=== PATIENT | female | born 1955 | race Caucasian/White ===

== ENCOUNTER 2019-05-03 05:40 | Outpatient (CLI) | payer BC ==
[~2019-05-03] VITALS: Ht 157.5 cm; Wt 46.7 kg
[2019-05-03] MEDS ORDERED: AMLO2.5T4 PO (13:14)
[2019-05-03] MEDS ORDERED: CLON1PAT16 TD (13:14)
== END 2019-05-03 13:20 | disposition home or self-care (01) ==
LOC: PREOP 05:40
PROVIDERS: ATTEND Pediatrics
DX: Z01.818 Encounter for other preprocedural examination (principal)

== ENCOUNTER 2019-05-10 06:35 | Day surgery (SDC) | payer BC ==
[~2019-05-10] VITALS: Ht 157.5 cm; Wt 46.7 kg
[~2019-05-10 06:35] MED LIST: AMLO2.5T4 PO; CLON1PAT16 TD
--- OUTSIDE RECORDS SUMMARY | 2019-05-10 06:38 | XMS REPORT | Continuity of Care Document ---
Author Author [facility] Organization [facility] Address [facility] [address] [place] [id number] Phone Unavailable Support Name Relationship Address Phone CANDIE WOOD Caregiver [address] [place] [phone] Unavailable ASCENCION CUETO MD Caregiver [address] [place] [phone] Unavailable JAIDA LOUIS Next Of Kin [facility] [address] [place] [address] Insurance Providers Payer Name Policy Number Subscriber Name Relationship [employer] Other [id number] Keeley Louis 17 Self / Same As Patient Advance Directives Directive Response Recorded Date/Time Advance Directives No 05/21/17 7:22am Living Will No 05/21/17 7:22am Health Care Proxy No 05/21/17 7:22am Power of Manager Commercial Sales for Health Care No 05/21/17 7:22am Organ, Tissue, or Eye Donor No 05/21/17 7:22am Do you have a signed organ donor card? No 05/21/17 7:22am Chief Complaint and Reason for Visit Chief Complaint FOREIGN BODY_SENSATION IN THRO Reason for Visit [id number] Problems Active Problems Medical Problem Onset Date Status Esophageal obstruction due to food impaction Unknown Acute Medications Current Home Medications Medication Dose Units Route Directions Days/Qty Instructions Start Date Clonidine Hcl 1 Patch.wk 2 Patch Transderm Weekly 4 05/21/17 Social History Social History Problem Response Recorded Date/Time Smoking Status Never smoker 05/21/2017 6:43am Query Response Start Date Stop Date Smoking Status Never smoker Hospital Discharge Instructions No hospital discharge instructions. Plan of Care Discharge Date 05/21/17 8:49am Condition at Discharge Stable Prescriptions See Medication Section Functional Status Query Response Date Recorded Patient Behavior Anxious May 21, 2017 6:35am Allergies, Adverse Reactions, Alerts No known allergies. Immunizations Name Given Type Hx Diphtheria, Pertussis, Tetanus Vaccination Unknown Historical Hx Influenza Vaccination Y Fall 2015 Historical Hx Pneumococcal Vaccination No Historical Vital Signs Acute Vital Signs Vital Response Date/Time Temperature (Fahrenheit) 97.6 degrees F (97.6 - 99.5) 05/21/2017 6:31am Temperature Source Temporal Artery 05/21/2017 6:31am Pulse Rate (adult) 70 bpm (60 - 90) 05/21/2017 8:32am Respiratory Rate 22 bpm (12 - 24) 05/21/2017 8:32am Blood Pressure 158/67 mm Hg 05/21/2017 8:32am O2 Sat by Pulse Oximetry 98 % (90 - 100) 05/21/2017 8:32am Oxygen Delivery Method 05/21/2017 8:32am Pain Location Body Site Modifier 05/21/2017 7:04am Pain Description 05/21/2017 7:04am Height 5 ft 2 in Weight 130 lb Body Mass Index 23.0 kg/m^2 Results Laboratory Results Test Name Result Units Flags Reference Collection Date/Time Result Date/Time Comments White Blood Count 9.5 K/uL 4.8-10.8 05/21/2017 6:57am 05/21/2017 7:55am Red Blood Count 5.10 M/uL 4.20-5.40 05/21/2017 6:57am 05/21/2017 7:55am Hemoglobin 15.0 gm/dL 12.0-16.0 05/21/2017 6:57am 05/21/2017 7:55am Hematocrit 44.4 % 37.0-47.0 05/21/2017 6:57am 05/21/2017 7:55am Mean Corpuscular Volume 87.0 fL 81.0-99.0 05/21/2017 6:57am 05/21/2017 7:55am Mean Corpuscular Hemoglobin 29.4 pg 27.0-31.0 05/21/2017 6:57am 05/21/2017 7:55am Mean Corpuscular Hemoglobin Concent 33.8 g/dL 30.0-37.0 05/21/2017 6:57am 05/21/2017 7:55am Red Cell Distribution Width 13.9 % 11.5-14.5 05/21/2017 6:57am 05/21/2017 7:55am Platelet Count 277 K/uL 130-400 05/21/2017 6:57am 05/21/2017 7:55am Mean Platelet Volume 8.8 fL 7.4-10.4 05/21/2017 6:57am 05/21/2017 7:55am Neutrophils (%) (Auto) 77.9 % H 42.2-75.2 05/21/2017 6:57am 05/21/2017 7:55am Lymphocytes (%) (Auto) 18.4 % L 20.5-51.1 05/21/2017 6:57am 05/21/2017 7:55am Monocytes (%) (Auto) 2.8 % 1.7-9.3 05/21/2017 6:57am 05/21/2017 7:55am Eosinophils (%) (Auto) 0.3 % 0-3 05/21/2017 6:57am 05/21/2017 7:55am Basophils (%) (Auto) 0.5 % 0.0-1.0 05/21/2017 6:57am 05/21/2017 7:55am Neutrophils # (Auto) 7.4 K/uL H 2.0-6.9 05/21/2017 6:57am 05/21/2017 7:55am Lymphocytes # (Auto) 1.7 K/uL 1.2-3.4 05/21/2017 6:57am 05/21/2017 7:55am Monocytes # (Auto) 0.3 K/uL 0.1-0.6 05/21/2017 6:57am 05/21/2017 7:55am Eosinophils # (Auto) 0.0 K/uL 0.0-0.7 05/21/2017 6:57am 05/21/2017 7:55am Basophils # (Auto) 0.1 K/uL 0.0-0.2 05/21/2017 6:5705/21/2017 7:55am Random Glucose 128 mg/dL H 70-110 05/21/2017 6:5705/21/2017 8:00am Blood Urea Nitrogen 13 mg/dL 7-18 05/21/2017 6:5705/21/2017 8:00am Creatinine 1.2 mg/dL H 0.55-1.02 05/21/2017 6:57am 05/21/2017 8:01am Sodium Level 140 mEq/L 136-145 05/21/2017 6:5705/21/2017 8:00am Potassium Level 3.5 mEq/L 3.5-5.0 05/21/2017 6:57am 05/21/2017 8:00am Chloride Level 102 mEq/L 98-107 05/21/2017 6:57am 05/21/2017 8:00am Carbon Dioxide Level 21.0 mEq/L 21-32 05/21/2017 6:57am 05/21/2017 8:00am Calcium Level 9.6 mg/dL 8.8-10.5 05/21/2017 6:57am 05/21/2017 8:00am Glomerular Filtration Rate Calc 48.4 mL/min 05/21/2017 6:57am 05/21/2017 8:01am Procedures No known history of procedures. Encounters Encounter Location Arrival/Admit Date Discharge/Depart Date Attending Provider Departed Emergency Room [facility] 05/21/17 6:35am 05/21/17 8:49am ASCENCION CUETO MD Recent Diagnosis
[2019-05-10] MEDS ORDERED: NS IV 500 ML 500 ML IV PRN (06:55)
[2019-05-10] MEDS ORDERED: fentaNYL INJECTION 100 MCG/2 ML AMP IVP ONE (07:00)
[2019-05-10] MEDS ORDERED: MIDAZOLAM 2 MG/2 ML (VERSED) VIAL IVP ONE (07:00)
[2019-05-10] MEDS ORDERED: NS IV 500 ML 500 ML ONE (07:04)
[2019-05-10] MEDS ORDERED: MIDAZOLAM 2 MG/2 ML (VERSED) VIAL ONE ×3 (07:16)
[2019-05-10] MEDS ORDERED: fentaNYL INJECTION 100 MCG/2 ML AMP ONE (07:17)
[2019-05-10 07:28] VITALS: BP 184/81
--- NOTE | 2019-05-10 07:53 | Progress Note-Pre Operative ---
Pre-Operative Progress Note H&P Reviewed The H&P was reviewed, patient examined and no changes noted. Date Seen by Provider: May 10, 2019 Time Seen by Provider: 07:52 Date H&P Reviewed: May 10, 2019 Time H&P Reviewed: 07:53 Pre-Operative Diagnosis: KATYA Andrews MD May 10, 2019 07:53
--- NOTE | 2019-05-10 08:20 | Endoscopy Procedure Report ---
Colonoscopy Procedure Performed: Colonoscopy Pre-Operative Diagnosis: screen Post-Operative Diagnosis: sigmopid polyp Stave Machine Tender: None. Indications for Procedure: screen Procedure Details: Informed consent was obtained, the risks, benefits and alternatives to the procedure were explained to the patient. The Keeley Palumbo, a 63 yr old fem saida, was brought to to surgery area, sedated with 6 mg of Versed and 50 mg of fentanyl. She was placed in the left lateral decubitus position. Under direct visualization the scope was passed easily to the cecum. Cecum is identified by landmarks. Scope was carefully withdrawn. Findings: Ascending Colon: none Transverse Colon: none Descending/Sigmoid: sigmoid polyp Rectum: internal hemmorhoids Estimated Blood Loss: 0mL Specimens: sigmoid polyp Complications: None; patient tolerated the procedure well. Final Diagnosis: sigmoid polyp KATYA SAN MD May 10, 2019 08:20
[2019-05-10 08:25] VITALS: BP 145/67
[2019-05-10 08:51] VITALS: BP 145/67
--- NOTE | 2019-05-16 16:00 | Physician Query-Final Dx ---
YANDY QUAN 05/16/19 1600: Clinic Account Progress/Dx Physician Query: Dr Jain Please specify how the polyp was removed ( hot biopsy, snare, ablation or ect...) thank you Date of Service May 10, 2019 at 06:35 GERBER PETERSON 05/28/19 1053: YANDY QUAN May 16, 2019 16:00 GERBER PETERSON May 28, 2019 10:53
== END 2019-05-10 08:55 | disposition home or self-care (01) ==
LOC: ENDO 06:35
PROVIDERS: ATTEND Pediatrics
DX: Z12.11 Encounter for screening for malignant neoplasm of colon (principal); D12.7 Benign neoplasm of rectosigmoid junction; K64.8 Other hemorrhoids; I10 Essential (primary) hypertension; I73.9 Peripheral vascular disease, unspecified; F51.01 Primary insomnia; Z79.899 Other long term (current) drug therapy
CPT/HCPCS: 88305

== ENCOUNTER 2020-03-16 11:17 | Emergency (ER) | payer MEDICARE, OTHER ==
[~2020-03-16] VITALS: Ht 157 cm; Wt 64.3 kg
--- OUTSIDE RECORDS SUMMARY | 2020-03-16 11:23 | XMS REPORT | Continuity of Care Document ---
Author Organization Unknown Address Unknown Phone Unavailable Allergies Active Description Code Type Severity Reaction Onset Reported/Identified Relationship to Patient Clinical Status Yes No Known Drug Allergies [id number] Drug Allergy Unknown N/A 05/03/2019 Medications There is no data. 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 05/29/2019 KATYA SAN MD, Ot F51.01 PRIMARY INSOMNIA 05/29/2019 KATYA SAN MD, Ot I10 ESSENTIAL (PRIMARY) HYPERTENSION 05/29/2019 KATYA SAN MD, Ot I73.9 PERIPHERAL VASCULAR DISEASE, UNSPECIFIED 05/29/2019 KATYA SAN MD, Ot K64.8 OTHER HEMORRHOIDS 05/29/2019 KATYA SAN MD, Ot Z12.11 ENCOUNTER FOR SCREENING FOR MALIGNANT NE 05/29/2019 KATYA SAN MD, Ot Z79.899 OTHER TRAFFIC AGENT (CURRENT) DRUG THERAPY 05/31/2019 KATYA SAN MD, Ot 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 Results There is no data. Encounters ACCT No. Visit Date/Time Discharge Status Pt. Type Provider Facility Loc./Unit Complaint [id number] 05/10/2019 06:35:00 019 08:55:00 DIS Outpatient MENA OLSEN, KATYA blue [facility] ENDO SCREENING [id number] 05/03/2019 05:40:00 019 13:20:00 DIS Outpatient MENA OLSEN, KATYA blue [facility] PREOP COLONOSCOPY
[2020-03-16] MEDS ORDERED: LEVO500T80 (11:28)
[2020-03-16] MEDS ORDERED: NS IV 1000 ML 1,000 ML IV SCH (11:29)
[2020-03-16] MEDS ORDERED: ASPIRIN 81 MG CHEW (CHILDREN'S ASA) PO ONE (11:30)
--- NOTE | 2020-03-16 11:36 | ED Cardiac General ---
History of Present Illness General Chief Complaint: Cardiac/General Problems Stated Complaint: FEELS LIKE HER HEART IS RACING Nursing Triage Note: Patient reports sitting on couch prior to arrival and feeling like her heart started racing. Source: patient Exam Limitations: no limitations History of Present Illness Date Seen by Provider: Mar 16, 2020 Time Seen by Provider: 11:20 Initial Comments Patient presents ER by private conveyance from home with chief complaint that she was sitting on the couch not doing anything strenuous about half an hour jordana or to arrival when she started feeling palpitations and rapid heart rate. She has no history of atrial fibrillation. She says is happened once years before. She is not having any chest pain or new pains. No fevers chills cough for nausea. She did recently start Levaquin for a bout of diverticulitis by Dr. San her primary care office. She is on amlodipine for blood pressure. She denies a history of hyperlipidemia, coronary disease, or diabetes. She quit smoking over 15 years ago. She has had bilateral femoral popliteal bypass grafts for peripheral arterial disease. No early onset familial coronary disease. Allergies and Home Medications Allergies Coded Allergies: No Known Drug Allergies (Unverified , 05/03/19) Home Medications Amlodipine Besylate 2.5 Mg Tablet, 2.5 MG PO DAILY, (Reported) Clonidine 1 Each Patch.tdwk, 2 PATCH TD Q7D, (Reported) Metoprolol Succinate 50 Mg Tab.er.24h, 50 MG PO DAILY Prescribed by: JEANNE MEDRANO on 03/16/20 1450 Patient Home Medication List Home Medication List Reviewed: Yes Review of Systems Review of Systems Constitutional: No chills, No diaphoresis EENTM: No Blurred Vision, No Double Vision Respiratory: Denies Cough, Denies Shortness of Air Cardiovascular: Denies Chest Pain, Denies Lightheadedness Gastrointestinal: Denies Constipated, Denies Vomiting Genitourinary: Denies Discharge, Denies Drainage Musculoskeletal: No back pain, No joint pain Skin: No pruritus, No rash Psychiatric/Neurological: Denies Headache, Denies Numbness, Denies Paresthesia All Other Systems Reviewed Negative Unless Noted: Yes Past Hmszqyf-Soqwpu-Udaibw Hx Patient Social History Alcohol Use: Occasionally Uses Recreational Drug Use: No Smoking Status: Former Smoker Former Smoker, Quit: May 03, 2003 2nd Hand Smoke Exposure: Yes Recent Foreign Travel: No Contact w/Someone Who Travel: No Recent Infectious Disease Expo: No Recent Hopitalizations: No Immunizations Up To Date Date of Influenza Vaccine: Sep 04, 2018 Seasonal Allergies Seasonal Allergies: No Past Medical History Surgeries: Yes (VASCULAR LEGS, femeral bypass) Gallbladder, Vascular Surgery Respiratory: No Cardiac: Yes Hypertension, Peripheral Vascular Neurological: No Sexually Transmitted Disease: No HIV/AIDS: No Genitourinary: No Gastrointestinal: No Musculoskeletal: No Endocrine: No HEENT: Yes (GLASSES, DENTURES) Loss of Vision: Bilateral Hearing Impairment: Denies Cancer: No Psychosocial: No Integumentary: No Blood Disorders: No Adverse Reaction/Blood Tranf: No (N/A) Physical Exam Vital Signs Vital Signs - First Documented 03/16/20 11:21 Temp 36.4 Pulse 147 Resp 24 B/P (MAP) 223/80 (127) Pulse Ox 96 Capillary Refill : Less Than 3 Seconds Height, Weight, BMI Height: 5'2.00" Weight: 103lbs. 0.0oz. [id number]; 26.00 BMI Method: General Appearance: WD/WN, Anxious, Mild Distress HEENT: PERRL/EOMI, Pharynx Normal, Moist Mucous Membranes Neck: Full Range of Motion, Normal Inspection Respiratory: Chest Non Tender, Lungs Clear, Normal Breath Sounds, No Accessory Muscle Use, No Respiratory Distress Cardiovascular: Regular Rate, Rhythm, No Edema, No JVD, Normal Peripheral Pulses, Tachycardia Gastrointestinal: Normal Bowel Sounds, Non Tender, Soft Extremity: Normal Capillary Refill, Normal Inspection, Normal Range of Motion, Non Tender, No Pedal Edema Neurologic/Psychiatric: Alert, Oriented x3, No Motor/Sensory Deficits Skin: Normal Color, Warm/Dry Procedures/Interventions Additional Procedures: cardioversion/defib Progress Attempt at chemical cardioversion using Adenocard with 6 mg at 1151 slow the heart rate down significantly and then shortly resumed a inappropriate sinus tachycardia. Second attempt using 12 mg Adenocard slow the heart rate down significantly for about 10 seconds and then resumed into a sinus tachycardia 110 bpm. Progress/Results/Core Measures Results/Orders Lab Results Laboratory Tests Test 03/16/20 11:30 Range/Units White Blood Count 8.9 4.3-11.0 10^3/uL Red Blood Count 5.25 4.35-5.85 10^6/uL Hemoglobin 15.3 11.5-16.0 G/DL Hematocrit 45 35-52 % Mean Corpuscular Volume 86 80-99 FL Mean Corpuscular Hemoglobin 29 25-34 PG Mean Corpuscular Hemoglobin Concent 34 32-36 G/DL Red Cell Distribution Width 13.0 10.0-14.5 % Platelet Count 317 130-400 10^3/uL Mean Platelet Volume 9.5 7.4-10.4 FL Neutrophils (%) (Auto) 55 42-75 % Lymphocytes (%) (Auto) 37 12-44 % Monocytes (%) (Auto) 5 0-12 % Eosinophils (%) (Auto) 2 0-10 % Basophils (%) (Auto) 1 0-10 % Neutrophils # (Auto) 4.9 1.8-7.8 X 10^3 Lymphocytes # (Auto) 3.3 1.0-4.0 X 10^3 Monocytes # (Auto) 0.4 0.0-1.0 X 10^3 Eosinophils # (Auto) 0.2 0.0-0.3 10^3/uL Basophils # (Auto) 0.1 0.0-0.1 10^3/uL D-Dimer 3.22 H 0.00-0.49 UG/ML Sodium Level 141 135-145 MMOL/L Potassium Level 4.0 3.6-5.0 MMOL/L Chloride Level 102 98-107 MMOL/L Carbon Dioxide Level 21 21-32 MMOL/L Anion Gap 18 H 5-14 MMOL/L Blood Urea Nitrogen 10 7-18 MG/DL Creatinine 1.27 0.60-1.30 MG/DL Estimat Glomerular Filtration Rate 42 BUN/Creatinine Ratio 8 Glucose Level 152 H 70-105 MG/DL Calcium Level 9.8 8.5-10.1 MG/DL Corrected Calcium 9.6 8.5-10.1 MG/DL Total Bilirubin 0.2 0.1-1.0 MG/DL Aspartate Amino Transf (AST/SGOT) 24 5-34 U/L Alanine Aminotransferase (ALT/SGPT) 19 0-55 U/L Alkaline Phosphatase 131 40-136 U/L Troponin I < 0.30 <0.30 NG/ML C-Reactive Protein 2.01 H <0.50 MG/DL Pro-B-Type Natriuretic Peptide 96.8 H <75.0 PG/ML Total Protein 8.0 6.4-8.2 GM/DL Albumin 4.3 3.2-4.5 GM/DL My Orders Orders - JEANNE MEDRANO Continuous Ekg Monitoring (03/16/20 11:25) Ekg Tracing (03/16/20 11:25) Chest 1 View Ap/Pa Only (03/16/20 11:29) Ed Iv/Invasive Line Start (03/16/20 11:29) Monitor-Rhythm Ecg Trace Only (03/16/20 11:29) Aspirin Chewable Tablet (Baby Aspirin Ch (03/16/20 11:30) Cbc With Automated Diff (03/16/20 11:29) Comprehensive Metabolic Panel (03/16/20 11:29) Troponin I Fs (03/16/20 11:29) Probnp Fs (03/16/20 11:29) Ed Iv/Invasive Line Start (03/16/20 11:29) Ns Iv 1000 Ml (Sodium Chloride 0.9%) (03/16/20 11:29) Adenosine Injection (Adenocard Injection (03/16/20 11:42) Adenosine Injection (Adenocard Injection (03/16/20 12:00) Ekg Tracing (03/16/20 12:08) Crp Fs (03/16/20 12:09) Fibrin Degradation Products (03/16/20 12:54) Ct Angio Chest W (03/16/20 13:12) Iohexol Injection (Omnipaque 350 Mg/Ml 1 (03/16/20 13:15) Received Contrast (Hold Metformin- Contr (03/16/20 13:15) Sodium Chloride Flush (Catheter Flush Sy (03/16/20 13:15) Ns (Ivpb) (Sodium Chloride 0.9% Ivpb Bag (03/16/20 13:15) Metoprolol Succinate (Xl) Tab (Toprol Xl (03/16/20 14:15) Medications Given in ED Current Medications Medications Dose Ordered Sig/Danie Route Start Time Stop Time Status Last Admin Dose Admin Adenosine 6 mg STK-MED ONCE IV 03/16/20 11:42 03/16/20 11:49 DC 03/16/20 11:51 6 MG Adenosine 12 mg ONCE ONCE IV 03/16/20 12:00 03/16/20 12:01 DC 03/16/20 11:54 12 MG Aspirin 324 mg ONCE ONCE PO 03/16/20 11:30 03/16/20 11:32 DC 03/16/20 11:34 324 MG Iohexol 80 ml ONCE ONCE IV 03/16/20 13:15 03/16/20 13:17 DC 03/16/20 13:37 80 ML Sodium Chloride 10 ml NEEDED PRN IV 03/16/20 13:15 03/16/20 13:38 10 ML Sodium Chloride 100 ml ONCE ONCE IV 03/16/20 13:15 03/16/20 13:17 DC 03/16/20 13:38 100 ML Vital Signs/I&O 03/16/20 11:21 Temp 36.4 Pulse 147 Resp 24 B/P (MAP) 223/80 (127) Pulse Ox 96 Blood Pressure Mean: 127 Progress Progress Note #1: Time: 11:40 Progress Note She is hemodynamically stable at this time with a elevated blood pressure of 190/90. At rest her heart rate coming down from the 130s to around 120. It is regular with normal morphology P waves upright in leads II and I. She doesn't have any other history to support why she wouldn't have tachycardia. She does have diverticulitis but it's unusual that it would come on so suddenly. We'll attempt vagal maneuvers and Adenocard if necessary. No previous medical history at this facility to reference. Unlikely diverticulitis is causing a physiologic sinus tachycardia as she is having a sudden onset of symptoms with palpitations. No fever no significant abdominal pain, non-tender nonsurgical abdomen, normal white count without left shift. 1145: Patient was unable to successfully abort the tachycardia by vagal maneuvers after multiple attempts. She is still hemodynamically stable with an oxygen saturation of 100% on room air and a good blood pressure. Progress Note #2: Time: 11:51 Progress Note Gave 6 mg of Adenocard which did terminate the rhythm when and then momentarily the rhythm resumed in a sinus tachycardia. Second dose of 12 mg was given which had similar effects but she resumed a sinus tachycardia around 100-110. Blood pressure 197/66. Progress Note #3: Time: 14:47 Progress Note Patient's pulses in the 80s and 90s and she says she feels better than when she first presented. No ill effects from the metoprolol so far. We have had her take off her clonidine patches and hold those until she sees her primary care doctor. Blood pressure 159/78. Initial ECG Impression Date: Mar 16, 2020 Initial ECG Impression Time: 11:20 Initial ECG Rate: 126 Initial ECG Rhythm: S.Tach Initial ECG Intervals: Normal Initial ECG Impression: Nonspecific Changes Comment The time is about 8 minutes earlier than the EKG was initially obtained. Regular then, narrow QRS complex tachycardia with one-on-one P-wave relationship. Normal morphologic appearance of the P waves. Appears to be either inappropriate sinus tachycardia or sinoatrial node reentrant tachycardia. EKG : EKG Time: 11:44 Rate: 121 Rhythm: S.Tach Intervals: Normal ECG Comparisson: Unchanged ECG Impression: Nonspecific Changes Comment Times Is off. Adenocard was given at 1151 and 1153 12 mg. Expected effect from Adenocard followed by resuming narrow complex sinus tachycardia. No clinically relevant ST changes. Diagnostic Imaging Diagonstic Imaging: Xray Plain Films/CT/US/NM/MRI: chest Comments Unremarkable one view chest x-ray. NAME: GILMAR LOUIS [facility] REC#: [id number] PT STATUS: REG ER : 1955 PHYSICIAN: JEANNE MEDRANO MD ADMIT DATE: 03/16/20/ER FS Draft Date of Exam:03/16/20 CHEST 1 VIEW AP/PA ONLY INDICATION: Tachycardia. Time of exam 11:38 AM No prior studies are available for comparison. The heart size is normal. The pulmonary vascularity is unremarkable. The lungs are clear. No infiltrate, effusion or pneumothorax is detected. Impression: No acute cardiopulmonary process is detected. Dictated on workstation # [id number] Dict: 03/16/20 1143 Trans: 03/16/20 1150 [facility] [id number] Interpreted by: IVIS RHODES MD Electronically signed by: Reviewed: Reviewed by Me Consults : Consulting Physician: Santos VARGAS MD Consults Notes Discussed the case and he recommends beta blockers. We have forwarded a copy of the EKG for him to review. He brought up the possibility for pulmonary embolism. A d-dimer failed to rule out so we got a CT angiogram which failed to find a pulmonary embolism. We discussed the results and he agrees with Toprol-XL and follow up outpatient. Departure Impression Primary Impression: Inappropriate sinus node tachycardia Additional Impression: Right adrenal mass Disposition: 01 HOME, SELF-CARE Condition: Stable Departure-Patient Inst. Decision time for Depature: 14:47 Referrals: KATYA SAN MD (PCP/Family) Primary Care Physician Santos VARGAS MD Patient Instructions: Sinus Tachycardia (DC) Add. Discharge Instructions: Drink plenty of fluids. Stop using the clonidine until you have reviewed this with either the geothermal operating engineer or your primary care doctor. Start taking metoprolol 50 mg once a day. Return to the ER. Having chest pain or shortness of breath. Plan to follow up with primary care to discuss the right adrenal nodule. Discuss her blood pressure medications. Plan to follow up with Dr. Vargas, cardiology by calling tomorrow for an appointment for your inappropriate sinus node tachycardia. All discharge instructions reviewed with patient and/or family. Voiced understanding. Scripts Metoprolol Succinate (Metoprolol Succinate) 50 Mg Tab.er.24h 50 MG PO DAILY for 30 Days, #30 TAB 0 Refills Prov: JEANNE MEDRANO 03/16/20 JEANNE MEDRANO Mar 16, 2020 11:36
[2020-03-16] MEDS ORDERED: ADENOSINE 6 MG/2 ML (ADENOCARD) VIAL IV ONE ×2 (11:42→12:00)
[2020-03-16 11:43] LABS: BASOPHILS # (AUTO) 0.1 10^3/uL (0.0-0.1); BASOPHILS % (AUTO) 1 % (0-10); EOSINOPHILS # (AUTO) 0.2 10^3/uL (0.0-0.3); EOSINOPHILS % (AUTO) 2 % (0-10); HEMATOCRIT 45 % (35-52); HEMOGLOBIN 15.3 G/DL (11.5-16.0); LYMPHOCYTES # (AUTO) 3.3 X 10^3 (1.0-4.0); LYMPHOCYTES % (AUTO) 37 % (12-44); MEAN CORPUSCULAR HEMOGLOBIN 29 PG (25-34); MEAN CORPUSCULAR HGB CONC 34 G/DL (32-36); MEAN CORPUSCULAR VOLUME 86 FL (80-99); MEAN PLATELET VOLUME 9.5 FL (7.4-10.4); MONOCYTES # (AUTO) 0.4 X 10^3 (0.0-1.0); MONOCYTES % (AUTO) 5 % (0-12); NEUTROPHILS # (AUTO) 4.9 X 10^3 (1.8-7.8); NEUTROPHILS % (AUTO) 55 % (42-75); PLATELET COUNT 317 10^3/uL (130-400); WHITE BLOOD COUNT 8.9 10^3/uL (4.3-11.0)
--- NOTE | 2020-03-16 11:50 | Diagnostic Imaging Report ---
INDICATION: Tachycardia. Time of exam 11:38 AM No prior studies are available for comparison. The heart size is normal. The pulmonary vascularity is unremarkable. The lungs are clear. No infiltrate, effusion or pneumothorax is detected. Impression: No acute cardiopulmonary process is detected. Dictated by: Dictated on workstation # [id number]
[2020-03-16 12:12] LABS: BUN/CREATININE RATIO 8; CALCIUM 9.8 MG/DL (8.5-10.1); CARBON DIOXIDE 21 MMOL/L (21-32); CHLORIDE 102 MMOL/L (98-107); CREATININE SERUM 1.27 MG/DL (0.60-1.30); GFR ESTIMATED 42; GLUCOSE 152 MG/DL (70-105); SODIUM 141 MMOL/L (135-145)
[2020-03-16 12:13] LABS: ALANINE AMINOTRANSFERASE 19 U/L (0-55); ALBUMIN 4.3 GM/DL (3.2-4.5); ALKALINE PHOSPHATASE 131 U/L (40-136); BILIRUBIN,TOTAL 0.2 MG/DL (0.1-1.0)
[2020-03-16] MEDS ORDERED: HOLD METFORMIN - RECEIVED CONTRAST 20 ML VIAL IV SCH (13:15)
[2020-03-16] MEDS ORDERED: CATHETER FLUSH 10 ML SYR IV PRN (13:15)
[2020-03-16] MEDS ORDERED: IOHEXOL 350 MG/ML 100 ML (OMNIPAQUE 350) VIAL IV ONE (13:15)
[2020-03-16] MEDS ORDERED: NS 100 ML (IVPB) BAG IV ONE (13:15)
--- NOTE | 2020-03-16 14:03 | Diagnostic Imaging Report ---
PROCEDURE: CT angiography of the chest with contrast. TECHNIQUE: Multiple contiguous axial images were obtained through the chest after uneventful bolus administration of intravenous contrast. 3D reconstructed CTA MIP acquisitions were also performed. Auto Exposure Controls were utilized during the CT exam to meet ALARA standards for radiation dose reduction. INDICATION: Tachycardia and elevated d-dimer. No prior studies are available for comparison. Multiple low-density nodules in the left lobe of the thyroid are identified. Evaluation of pulmonary arterial system is suboptimal, in part owing to motion artifact from patient respiratory motion. Central pulmonary arteries are widely patent. There is questionable filling defects involving segmental and subsegmental branches to the right lower lobe. Its uncertain if this is true filling defect versus artifactual. Thoracic aorta is of normal caliber. There is no aneurysm or dissection. There is no pericardial or pleural fluid identified. The pulmonary parenchymal evaluation demonstrates the lungs to be clear. No infiltrates are seen. There is no nodule or mass. Upper abdomen does show low-density nodule in the right adrenal gland measuring 1.5 cm. No other abnormalities are seen. IMPRESSION: Compromised study. There is a questionable filling defects versus artifact involving right lower lobe segmental and subsegmental pulmonary arterial branches. Pulmonary embolism cannot be entirely excluded. No other significant abnormality in the chest is identified. Right adrenal low-density nodule, perhaps adenoma. Dictated by: Dictated on workstation # [id number]
[2020-03-16] MEDS ORDERED: meTOproloL SUCCINATE 50 MG (TOPROL XL) TAB PO SCH (14:15)
[2020-03-16] MEDS ORDERED: METO50TA7 PO (14:50)
[2020-03-16 15:03] VITALS: BP 159/78
== END 2020-03-16 15:03 | disposition home or self-care (01) ==
LOC: EDUNIT# 11:17 → ER FS 11:18
DX: I47.1 Supraventricular tachycardia (principal); E27.8 Other specified disorders of adrenal gland; I10 Essential (primary) hypertension; Z87.891 Personal history of nicotine dependence
CPT/HCPCS: 36415; 71045; 71275; 80053; 83880; 84484; 85025; 85379; 86141; 93005; 93041

== ENCOUNTER 2021-01-13 18:45 | Day surgery (SDC) | payer MEDICARE, OTHER ==
[~2021-01-13 18:45] MED LIST changes: +LEVO500T80; +METO50TA7 PO
[2021-01-13] MEDS ORDERED: GLUCAGON EMERGENCY 1 MG/KIT ONE (18:54)
--- NOTE | 2021-01-13 18:59 | ED General ---
General Chief Complaint: General Problems/Pain Stated Complaint: FOOD STUCK IN THROAT Source of Information: Patient (TIMUR CONTRERAS DO) History of Present Illness Date Seen by Provider: Jan 13, 2021 Time Seen by Provider: 18:55 Initial Comments 65-year-old female presents with food caught in her throat. States she was eating dinner tonight, ate beef pot pie and felt something stick in her lower esophagus. Since then she has tried drinking water and unsuccessfully as it comes right back up. She tried several times. History of similar symptoms about 3 years ago and she had to have a surgeon "poke through". Other than that no symptoms since then. Denies any recent illness, fever chills, shortness of air or swelling of her tongue or mouth. (TIMUR CONTRERAS DO) Allergies and Home Medications Allergies Coded Allergies: No Known Drug Allergies (Unverified , 05/03/19) Home Medications Amlodipine Besylate 2.5 Mg Tablet, 2.5 MG PO DAILY, (Reported) Clonidine 1 Each Patch.tdwk, 2 PATCH TD Q7D, (Reported) Metoprolol Succinate 50 Mg Tab.er.24h, 50 MG PO DAILY Prescribed by: JEANNE MARROQUIN on 03/16/20 1450 Pantoprazole Sodium 40 Mg Tablet.dr, 40 MG PO DAILY Prescribed by: JOYCE TATE on 01/13/21 2141 Patient Home Medication List Home Medication List Reviewed: Yes (TIMUR CONTRERAS DO) Review of Systems Review of Systems Constitutional: No dizziness, No fever, No malaise, No weakness EENTM: no symptoms reported; No mouth pain, No mouth swelling, No throat pain, No throat swelling Respiratory: No cough, No short of breath Cardiovascular: No chest pain, No edema, No palpitations, No syncope Gastrointestinal: No abdominal pain, No loss of appetite, No nausea, No vomiting; other (food stuck in throat) (TIMUR CONTRERAS DO) Past Dlwgoev-Tcwrfa-Nkqaqo Hx Past Med/Social Hx: Reviewed Nursing Past Med/Soc Hx (TIMUR CONTRERAS DO) Patient Social History Alcohol Use: Denies Use Former Smoker, Quit: May 03, 2003 2nd Hand Smoke Exposure: Yes Recent Hopitalizations: No (TIMUR CONTRERAS DO) Immunizations Up To Date Date of Influenza Vaccine: Sep 04, 2018 (ROVENSTINE,TIMUR L DO) Seasonal Allergies Seasonal Allergies: No (ROVENSTINE,TIMUR L DO) Past Medical History Surgeries: Yes (VASCULAR LEGS, femeral bypass) Gallbladder, Vascular Surgery Respiratory: No Cardiac: Yes Hypertension, Peripheral Vascular Neurological: No Sexually Transmitted Disease: No HIV/AIDS: No Genitourinary: No Gastrointestinal: No Musculoskeletal: No Endocrine: No HEENT: Yes (GLASSES, DENTURES) Loss of Vision: Bilateral Hearing Impairment: Denies Cancer: No Psychosocial: No Integumentary: No Blood Disorders: No Adverse Reaction/Blood Tranf: No (N/A) (ROVENSTINE,TIMUR L DO) Physical Exam Vital Signs Vital Signs - First Documented 01/13/21 18:47 Temp 36.6 Pulse 82 Resp 18 B/P (MAP) 213/69 (117) Pulse Ox 99 O2 Delivery Room Air (JEANNE MARROQUIN) Vital Signs Capillary Refill : (ROVENSTINE,TIMUR L DO) Height, Weight, BMI Height: 5'2.00" Weight: 103lbs. 0.0oz. [id number]; 26.00 BMI Method: General Appearance: No Apparent Distress, WD/WN Eyes: Bilateral Eye Normal Inspection, Bilateral Eye PERRL, Bilateral Eye Abnormal EOM HEENT: PERRL/EOMI, Normal ENT Inspection Neck: Full Range of Motion, Normal Inspection Respiratory: Chest Non Tender, Lungs Clear, Normal Breath Sounds Cardiovascular: Regular Rate, Rhythm, No Gallop, No JVD Gastrointestinal: Normal Bowel Sounds, No Pulsatile Mass, Non Tender, Soft (ROVENSTINE,TIMUR L DO) Progress/Results/Core Measures Suspected Sepsis SIRS Temperature: Pulse: Respiratory Rate: Blood Pressure / Mean: (ROVENSTINE,TIMUR L DO) Results/Orders My Orders Orders - JEANNE MARROQUIN Fentanyl Injection (Sublimaze Injection (01/13/21 20:54) Midazolam Injection (Versed Injection) (01/13/21 20:55) Propofol Injection (Diprivan Injection) (01/13/21 20:55) Lidocaine 2% Pf 5 Ml (Xylocaine 2% Pf) (01/13/21 20:55) (JEANNE MARROQUIN) Medications Given in ED Current Medications Medications Dose Ordered Sig/Danie Route Start Time Stop Time Status Last Admin Dose Admin Glucagon 1 mg ONCE ONCE IV 01/13/21 19:00 01/13/21 19:01 DC 01/13/21 19:01 1 MG Lactated Ringer's 1,000 ml @ 0 mls/hr Q0M PRN IV 01/13/21 21:00 01/13/21 23:50 DC 01/13/21 21:10 50 MLS/HR (JEANNE MARROQUIN) Vital Signs/I&O 01/13/21 01/13/21 01/13/21 01/13/21 18:47 19:45 20:47 21:52 Temp 36.6 36.0 Pulse 82 70 92 Resp 18 18 B/P (MAP) 213/69 (117) 198/80 212/93 (132) Pulse Ox 99 98 O2 Delivery Room Air Room Air Room Air OxyMask O2 Flow Rate 6 01/13/21 01/13/21 01/13/21 01/13/21 21:52 22:00 22:02 22:08 Temp 36.1 Resp 16 18 B/P (MAP) 142/64 (90) 152/68 (96) Pulse Ox 99 100 O2 Delivery OxyMask OxyMask OxyMask OxyMask O2 Flow Rate 6 6 3 2 01/13/21 01/13/21 01/13/21 01/13/21 22:10 22:10 22:16 22:20 Resp 18 18 B/P (MAP) 146/76 (99) 159/69 (99) Pulse Ox 100 97 O2 Delivery Room Air Room Air Room Air Room Air 01/13/21 01/13/21 01/13/21 01/13/21 22:22 22:30 22:35 22:35 Temp 36.2 Resp 18 18 B/P (MAP) 154/65 (94) 152/68 (96) Pulse Ox 97 97 O2 Delivery Room Air Room Air Room Air Room Air (JEANNE MARROQUIN) Vital Signs/I&O Capillary Refill : (TIMUR CONTRERAS DO) Progress Note : Progress Note Trial of IV glucagon without success (TIMUR CONTRERAS DO) Progress Note #1: Time: 20:55 Progress Note Patient arrives 2044 with chief complaint of having a food embolus stuck since dinner this evening. She is not having any pain but she is unable to swallow any secretions. Dr. Tate's medical students have seen and examined her and he is on his way to discuss with her doing a embolectomy by EGD. Patient not having any nausea. She did have some significantly elevated blood pressure. She says she does take blood pressure medicines and has already had them today. We are going to monitor her blood pressure as it is already starting to go down with time. Progress Note #2: Time: 21:10 Progress Note To EGD with Dr. Tate. (JEANNE MARROQUIN) Departure Communication (Admissions) Time/Spoke to Admitting Phy: 19:[address] Tate who will see pt for endoscopy. Sending though ER and Dr Marroquin notified @ 1940 (TIMUR CONTRERAS DO) Impression Primary Impression: Esophageal obstruction due to food impaction Disposition: 30 STILL A PATIENT Condition: Stable Admissions Decision to Admit Reason: Admit from ER (General) Decision to Admit/Date: Jan 13, 2021 Time/Decision to Admit Time: 19:30 (TIMUR CONTRERAS DO) Departure-Patient Inst. Referrals: KATYA SAN MD (PCP/Family) Primary Care Physician Scripts Pantoprazole Sodium (Protonix) 40 Mg Tablet. 40 MG PO DAILY, #30 TAB 2 Refills Prov: JOYCE TATE DO 01/13/21 TIMUR CONTRERAS DO Jan 13, 2021 18:59 JEANNE MARROQUIN Jan 13, 2021 20:56
[2021-01-13] MEDS ORDERED: GLUCAGON EMERGENCY 1 MG/KIT IV ONE (19:00)
[2021-01-13] MEDS ORDERED: fentaNYL INJECTION 100 MCG/2 ML AMP ONE (20:54)
[2021-01-13] MEDS ORDERED: LIDOCAINE PF 2% 5 ML (XYLOCAINE) VIAL ONE (20:55)
[2021-01-13] MEDS ORDERED: proPOfol 200 MG/20 ML (DIPRIVAN) VIAL IV ONE (20:55)
[2021-01-13] MEDS ORDERED: MIDAZOLAM 2 MG/2 ML (VERSED) VIAL ONE (20:55)
[2021-01-13] MEDS ORDERED: ONDANSETRON 4 MG/2 ML (SDV) Z0FRAN IVP PRN (21:00)
[2021-01-13] MEDS ORDERED: LACTATED RINGERS 1,000 ML IV PRN (21:00)
--- NOTE | 2021-01-13 21:00 | Consultation - Surgery ---
KRISTINA RADFORD MED STUDENT 01/13/21 2100: History of Present Illness History of Present Illness Patient Consulted On(ayush/time) 01/13/21 20:54 Date Seen by Provider: Jan 13, 2021 Time Seen by Provider: 08:50 Reason for Visit: esophageal food impaction History of Present Illness Surgery consulted for esophageal food impaction. HPI per ED: 65-year-old female presents with food caught in her throat. States she was eating dinner tonight, ate beef pot pie and felt something stick in her lower esophagus. Since then she has tried drinking water and unsuccessfully as it comes right back up. She tried several times. History of similar symptoms about 3 years ago and she had to have a surgeon "poke through". Other than that no symptoms since then. Denies any recent illness, fever chills, shortness of air or swelling of her tongue or mouth. Pt is a 65y/o F with PMH of HTN and Hx of PUD. Pt states dysphagia started after dinner today pt tried clearing throat with liquids but food would not clear. Pt unable to swallow down saliva since. Pt states she has epigastric pain, denies radiation. Pt states pain is light right now, could not quantify, pt sitting comfortable. Pt states she has had recent acid reflux sxs the last couple days, pt denies recent hx of dysphagia for food or liquids. Pt has similiar episode 3 years ago, was dx'd with PUD at that time. Pt states she hasnt had a EGD since then. Denies palpiations, chest pain, diarrhea or constipation. Allergies and Home Medications Allergies Coded Allergies: No Known Drug Allergies (Unverified , 05/03/19) Home Medications Amlodipine Besylate 2.5 Mg Tablet, 2.5 MG PO DAILY, (Reported) Clonidine 1 Each Patch.tdwk, 2 PATCH TD Q7D, (Reported) Metoprolol Succinate 50 Mg Tab.er.24h, 50 MG PO DAILY Prescribed by: JEANNE MEDRANO on 03/16/20 1450 Past Rjdirvv-Vcmfbi-Elpwui Hx Patient Social History Former Smoker, Quit: May 03, 2003 2nd Hand Smoke Exposure: Yes Recent Hopitalizations: No Immunizations Up To Date Date of Influenza Vaccine: Sep 04, 2018 Seasonal Allergies Seasonal Allergies: No Surgeries History of Surgeries: Yes (VASCULAR LEGS, femeral bypass) Surgeries: Gallbladder, Vascular Surgery Respiratory History of Respiratory Disorde: No Cardiovascular History of Cardiac Disorders: Yes Cardiac Disorders: Hypertension, Peripheral Vascular Neurological History of Neurological Disord: No Reproductive System Sexually Transmitted Disease: No HIV/AIDS: No Genitourinary History of Genitourinary Disor: No Gastrointestinal History of Gastrointestinal Di: No Gastrointestinal Disorders: Gastrointestinal Bleed (PUD 3 years ago ) Musculoskeletal History of Musculoskeletal Dis: No Endocrine History of Endocrine Disorders: No HEENT History of HEENT Disorders: Yes (GLASSES, DENTURES) Loss of Vision: Bilateral Hearing Impairment: Denies Cancer History of Cancer: No Psychosocial History of Psychiatric Problem: No Integumentary History of Skin or Integumenta: No Blood Transfusions History of Blood Disorders: No Adverse Reaction to a Blood Tr: No (N/A) Review of Systems-General Constitutional: No chills, No diaphoresis EENTM: No hoarseness, No throat pain Respiratory: No cough, No dyspnea on exertion, No hemoptysis, No short of breath Cardiovascular: No chest pain, No edema, No palpitations Gastrointestinal: abdominal pain (epigastric ); No constipation, No diarrhea; dysphagia; No hematemesis; heartburn; No melena, No nausea, No vomiting Genitourinary: No dysuria, No incontinence Physical Exam-General Problems Physical Exam Vital Signs Vital Signs - First Documented 01/13/21 18:47 Temp 36.6 Pulse 82 Resp 18 B/P (MAP) 213/69 (117) Pulse Ox 99 O2 Delivery Room Air Capillary Refill : Less Than 3 Seconds General Appearance: WD/WN, no apparent distress HEENT: PERRL/EOMI, TMs normal, pharynx normal Neck: non-tender, full range of motion, supple, normal inspection Respiratory: chest non-tender, lungs clear, normal breath sounds, no respiratory distress, no accessory muscle use Cardiovascular: regular rate, rhythm, no edema, no murmur Peripheral Pulses: 2+ Radial Pulses (R), 2+ Radial Pulses (L) Gastrointestinal: normal bowel sounds, non tender, soft, no organomegaly, no pulsatile mass Back: normal inspection, no CVA tenderness, no vertebral tenderness Extremities: normal range of motion, normal inspection, no pedal edema Skin: normal color, warm/dry Lymphatic: no adenopathy Assessment/Plan Assessment/Plan Admission Diagonsis esophageal food impaction Assessment/Plan esophageal food impaction HTN - BP 213/69 in ER at [place] earlier today Hx of PUD - dx'd 3 years ago at [facility] in [place]. EGD with food bolus disimpaction IV fluids, nausea and pain managment as indicated JOYCE FAYE DO 01/13/212114: History of Present Illness History of Present Illness History of Present Illness esopheal obstruction due to pot pie eating tonight beef pot pie, and foot got stuck. started to spit up secretions. Won't go down. Had similar episode 3 years ago. Recently no issue with swallowing. Nothing making better or worse. No medications. Some acid reflux which is new last couple days. Denies fever sweats chills shortness of breath or chest pain. Allergies and Home Medications Allergies Coded Allergies: No Known Drug Allergies (Unverified , 05/03/19) Home Medications Amlodipine Besylate 2.5 Mg Tablet, 2.5 MG PO DAILY, (Reported) Clonidine 1 Each Patch.tdwk, 2 PATCH TD Q7D, (Reported) Metoprolol Succinate 50 Mg Tab.er.24h, 50 MG PO DAILY Prescribed by: JEANNE MEDRANO on 03/16/20 1450 Patient Home Medication List Home Medication List Reviewed: Yes Past Kvpogsz-Wiiejo-Pesfur Hx Reviewed Nursing Assessment Reviewed/Agree w Nursing PMH: Yes Family Medical History Significant Family History: No Pertinent Family Hx Review of Systems-General Constitutional: No chills, No diaphoresis EENTM: No hoarseness, No throat pain Respiratory: No cough, No dyspnea on exertion, No hemoptysis, No short of breath Cardiovascular: No chest pain, No edema, No palpitations Gastrointestinal: No abdominal pain, No constipation, No diarrhea; dysphagia; No hematemesis; heartburn; No nausea; vomiting (spitting up) Genitourinary: No decreased output, No dysuria Musculoskeletal: No back pain, No joint pain Skin: No change in color, No change in hair/nails Psychiatric/Neurological: Denies Anxiety, Denies Depressed, Denies Emotional Problems All Other Systems Reviewed Negative Unless Noted: Yes (Negative excepted noted.) Physical Exam-General Problems Physical Exam General Appearance: WD/WN, no apparent distress HEENT: PERRL/EOMI, TMs normal, pharynx normal Neck: non-tender, full range of motion, supple, normal inspection Respiratory: chest non-tender, no respiratory distress, no accessory muscle use Cardiovascular: regular rate, rhythm, no JVD Gastrointestinal: non tender, soft, no organomegaly Rectal: deferred Back: normal inspection, no CVA tenderness, no vertebral tenderness Extremities: normal range of motion, normal inspection, no pedal edema Neurologic/Psychiatric: portable track line marker II-XII nml as tested, no motor/sensory deficits, alert, normal mood/affect, oriented x 3 Skin: normal color, warm/dry Lymphatic: no adenopathy Assessment/Plan Assessment/Plan Assessment/Plan esophageal food impaction HTN - Hx of PUD EGD with food bolus disimpaction discussed risks and benefits of egd all other indicated procedures, she understands and wishes to proceed. TO OR IV fluids, NPO Consent Supervisory-Addendum Brief Verification & Attestation Participated in pt care: history, MDM, physical Personally performed: exam, history, MDM, supervision of care Care discussed with: Medical Student Procedures: n/a Results interpretation: Verified all documentation Verification and Attestation of Medical Student E/M Service A medical student performed and documented this service in my presence. I reviewed and verified all information documented by the medical student and made modifications to such information, when appropriate. I personally performed the physical exam and medical decision making. Joyce Faye, Jan 13, 2021,21:15 RKISTINA RADFORD MED STUDENT Jan 13, 2021 21:00 JOYCE FAYE DO Jan 13, 2021 21:15
[2021-01-13] MEDS ORDERED: SEVOFLURANE (ULTANE) 15 ML INHAL SOLN ONE (21:03)
[2021-01-13] MEDS ORDERED: SUCCINYLCHOLINE INJ 100 MG/5 ML SYR/VIAL ONE (21:03)
[2021-01-13] MEDS ORDERED: ONDANSETRON 4 MG/2 ML (SDV) Z0FRAN ONE (21:36)
[2021-01-13] MEDS ORDERED: PANT40TA2 PO (21:41)
--- NOTE | 2021-01-13 21:43 | Discharge Inst-Simple/Standard ---
Discharge Inst-Standard Discharge Medications New, Converted or Re-Newed RX: Transmitted to Pharmacy Patient Instructions/Follow Up Plan of Care/Instructions/FU: [place] 2 weeks call to make appointment [phone] Activity as Tolerated: Yes Discharge Diet: Liquid Diet (3 days and then advance to soft diet. Chew all food well.) JOYCE TATE DO Jan 13, 2021 21:43
[2021-01-13 21:52] VITALS: BP 142/64
--- NOTE | 2021-01-13 21:55 | Anesthesia-General Post-Op ---
General Patient Condition Mental Status/LOC: Same as Preop Cardiovascular: Satisfactory Nausea/Vomiting: Absent Respiratory: Satisfactory Pain: Controlled Complications: Absent Post Op Complications Complications None Follow Up Care/Instructions Patient Instructions None needed. Anesthesia/Patient Condition Patient Condition Patient is doing well, no complaints, stable vital signs, no apparent adverse anesthesia problems. No complications reported per nursing. BRICE DICKEY CRNA Jan 13, 2021 21:55
[2021-01-13 22:00] VITALS: BP 152/68
[2021-01-13 22:10] VITALS: BP 146/76
--- NOTE | 2021-01-13 22:16 | OPERATIVE REPORT ---
DATE OF SERVICE: 01/13/2021 PREOPERATIVE DIAGNOSIS: Esophageal food bolus. POSTOPERATIVE DIAGNOSIS: Esophageal food bolus with distal esophagitis, possible stricture. PROCEDURE: EGD with removal of food bolus of esophagus. SURGEON: Alcides Faye DO ANESTHESIA: General. ESTIMATED BLOOD LOSS: None. COMPLICATIONS: None. INDICATIONS: The patient is a 65-year-old female who was eating pot pie when unable to swallow any secretions due to obstruction of her esophagus, she went into the Emergency Department for further evaluation. She was transferred to [facility] for procedure. The patient understands risks and benefits of procedure and wished to proceed with procedure. Consent was signed in the chart. DESCRIPTION OF PROCEDURE: The patient was taken to the operating suite, intubated. Timeout was performed. Scope was inserted in the mouth into the esophagus, which demonstrated a lot of secretions, which were suctioned and some food debris. Scope was continued to be advanced into the distal portion of esophagus where large piece of food was present, which a Acuna Net was then used to grasp it and then was able to be retracted. Scope was then reinserted after it was removed and the scope was inserted in mouth, down the esophagus and into the stomach without difficulty. It was advanced all the way into the duodenum without difficulty. There were no polyps, masses or ulcerations within the duodenum. Scope was slowly retracted back into the stomach where it was further insufflated. No other pathology noted. Scope was retroflexed noting no other pathology. Scope was returned to its normal position, slowly withdrawn to distal esophagus, erythematous changes where the food bolus was, some slight erythema, but the scope was able to be passed through this area without any difficulty. Scope was then slowly retracted back until completely removed, noting no other pathology. RECOMMENDATIONS: Would recommend repeating endoscopy in approximately 6 weeks to reevaluate and possibly dilate if appears to still be stricture or to have some narrowing. We will start her on Protonix 40 mg daily. We will have the patient stay on liquid diet for approximately 3 days and then slowly advance to a soft diet for foods that would easily pass through and give this time to decrease the inflammation. The patient will follow up in office in two weeks to discuss. Any issues before that be seen at that time. Job ID: [id number] DocumentID: [id number] Dictated Date: 01/13/2021 21:48:26 Final Cigar And Box Examiner Date: 01/13/2021 22:16:00 Dictated By: DO MALCOM ROSA
[2021-01-13 22:20] VITALS: BP 159/69
[2021-01-13 22:30] VITALS: BP 154/65
[2021-01-13 22:35] VITALS: BP 152/68
--- NOTE | 2021-01-14 09:43 | Anesthesia-General Post-Op ---
General Patient Condition Mental Status/LOC: Same as Preop Cardiovascular: Satisfactory Nausea/Vomiting: Absent Respiratory: Satisfactory Pain: Controlled Complications: Absent Post Op Complications Complications None Follow Up Care/Instructions Patient Instructions None needed. Anesthesia/Patient Condition Patient Condition Patient is doing well, no complaints, stable vital signs, no apparent adverse anesthesia problems. No complications reported per nursing. CHIDI BOOTH CRNA Jan 14, 2021 09:42
== END 2021-01-13 23:35 | disposition home or self-care (01) ==
LOC: EDUNIT# 18:45 → ER FS 18:46 → ENDO 21:04
PROVIDERS: ATTEND Surgery
DX: T18.128A Food in esophagus causing other injury, initial encounter (principal); I10 Essential (primary) hypertension; Z79.899 Other long term (current) drug therapy

== ENCOUNTER 2023-03-11 16:45 | Emergency (ER) | payer MEDICARE, OTHER ==
[~2023-03-11 16:45] MED LIST changes: +LEVO-55; -LEVO500T80; +PANT40TA2 PO
--- NOTE | 2023-03-11 17:10 | ED Abdominal Pain ---
General Chief Complaint: Abdominal/GI Problems Stated Complaint: ABD PAIN History of Present Illness Date Seen by Provider: Mar 11, 2023 Time Seen by Provider: 16:58 Initial Comments 67-year-old female with PMH of HTN/past H. pylori/cholecystectomy/chronic abdominal pain, is here with complaints of ongoing acute on chronic abdominal pain for the past 3 to 4 weeks. This is patient's third ER visit within the past 3 weeks, in addition she has been admitted to [facility] 2 times within the past 3 weeks and was just discharged on March 06. Patient stated that she has been having abdominal issues for over a year now. Last March she was treated for H. pylori and had an endoscopy at that time which did not show anything. Patient's last colonoscopy was approximately 6 years ago. Patient has been having diarrhea which has progressed to loose stools on a regular basis, multiple times a day, with nausea during the pain. Denies fever and chills, dysuria, hematuria, melena, hematemesis, cough, acid reflux, chest pain, palpitations. Patient has also had loss of appetite and loss of weight within the past month. Allergies and Home Medications Allergies Coded Allergies: No Known Drug Allergies (Unverified , 05/03/19) Patient Home Medication List Home Medication List Reviewed: Yes Amlodipine Besylate (Amlodipine Besylate) 2.5 Mg Tablet, 2.5 MG PO DAILY, (Reported) Entered as Reported by: DAYANA MARQUEZ on 05/03/19 1314 Clonidine (Clonidine TTS 3 Patch) 1 Each Patch.tdwk, 2 PATCH TD Q7D, (Reported) Entered as Reported by: DAYANA MARQUEZ on 05/03/19 1314 Levofloxacin (Levofloxacin) 500 Mg Tablet, (Reported) Entered as Reported by: YOSHI PAINTING on 03/16/20 1128 Metoprolol Succinate (Metoprolol Succinate) 50 Mg Tab.er.24h, 50 MG PO DAILY Prescribed by: JEANNE MEDRANO on 03/16/20 1450 Pantoprazole Sodium (Protonix) 40 Mg Tablet.dr, 40 MG PO DAILY Prescribed by: JOYCE TATE on 01/13/21 2141 Review of Systems Review of Systems Constitutional: malaise EENTM: No Symptoms Reported Respiratory: No Symptoms Reported Cardiovascular: No Symptoms Reported Gastrointestinal: Abdominal Pain, Nausea, Poor Appetite Genitourinary: No Symptoms Reported Musculoskeletal: no symptoms reported Skin: no symptoms reported Psychiatric/Neurological: No Symptoms Reported Endocrine: No Symptoms Reported Hematologic/Lymphatic: No Symptoms Reported Past Vnyufzo-Gebjly-Aodpwi Hx Patient Social History Tobacco Use?: No Use of E-Cig and/or Vaping dev: No Substance use?: No Alcohol Use?: No Pt feels they are or have been: No Immunizations Up To Date Influenza Vaccine Up-to-Date: No; Not Current First/Initial COVID19 Vaccinat: YES Seasonal Allergies Seasonal Allergies: No Past Medical History Surgery/Hospitalization HX: GERD; Cholecysectomy; H Pylori; HTN Surgeries: Yes (VASCULAR LEGS, femeral bypass) Gallbladder, Vascular Surgery Respiratory: No Cardiac: Yes Hypertension, Peripheral Vascular Neurological: No Sexually Transmitted Disease: No HIV/AIDS: No Genitourinary: No Gastrointestinal: No Gastrointestinal Bleed Musculoskeletal: No Endocrine: No HEENT: Yes (GLASSES, DENTURES) Loss of Vision: Bilateral Hearing Impairment: Denies Cancer: No Psychosocial: No Integumentary: No Blood Disorders: No Adverse Reaction/Blood Tranf: No (N/A) Family Medical History No Pertinent Family Hx Physical Exam Vital Signs Vital Signs - First Documented 03/11/23 16:49 Temp 36.6 Pulse 88 Resp 18 B/P (MAP) 190/72 (111) Pulse Ox 100 O2 Delivery Room Air Capillary Refill : Height/Weight/BMI Height: 5'2.00" Weight: 103lbs. 0.0oz. [id number]; 26.00 BMI Method: General Appearance: WD/WN, moderate distress, thin HEENT: PERRL/EOMI Neck: full range of motion Respiratory: chest non-tender, lungs clear, normal breath sounds, no respiratory distress Cardiovascular: regular rate, rhythm Gastrointestinal: normal bowel sounds, soft, no organomegaly, tenderness (epigastric tenderness) Extremities: normal range of motion Back: normal inspection, no CVA tenderness Pelvic: normal external exam Neurologic/Psychiatric: alert, normal mood/affect, oriented x 3 Skin: normal color Lymphatic: no adenopathy Focused Exam Lactate Level 03/11/23 16:55: Lactic Acid Level 3.07*H Lactic Acid Level Laboratory Tests Test 03/11/23 16:55 Lactic Acid Level 3.07 MMOL/L (0.50-2.00) *H Progress/Results/Core Measures Results/Orders Lab Results Laboratory Tests Test 03/11/23 16:49 03/11/23 16:55 Range/Units Urine Color YELLOW Urine Clarity CLEAR Urine pH 5.5 5-9 Urine Specific Gilbert 1.025 H 1.016-1.022 Urine Protein NEGATIVE NEGATIVE Urine Glucose (UA) NEGATIVE NEGATIVE Urine Ketones NEGATIVE NEGATIVE Urine Nitrite NEGATIVE NEGATIVE Urine Bilirubin NEGATIVE NEGATIVE Urine Urobilinogen 0.2 < = 1.0 MG/DL Urine Leukocyte Esterase NEGATIVE NEGATIVE Urine RBC (Auto) NEGATIVE NEGATIVE Urine RBC NONE /HPF Urine WBC 25-50 H /HPF Urine Squamous Epithelial Cells 5-10 /HPF Urine Crystals NONE /LPF Urine Bacteria FEW H /HPF Urine Casts NONE /LPF Urine Mucus LARGE H /LPF Urine Culture Indicated YES Urine Opiates Screen POSITIVE H NEGATIVE Urine Oxycodone Screen NEGATIVE NEGATIVE Urine Methadone Screen NEGATIVE NEGATIVE Urine Propoxyphene Screen NEGATIVE NEGATIVE Urine Barbiturates Screen NEGATIVE NEGATIVE Ur Tricyclic Antidepressants Screen NEGATIVE NEGATIVE Urine Phencyclidine Screen NEGATIVE NEGATIVE Urine Amphetamines Screen NEGATIVE NEGATIVE Urine Methamphetamines Screen NEGATIVE NEGATIVE Urine Benzodiazepines Screen NEGATIVE NEGATIVE Urine Cocaine Screen NEGATIVE NEGATIVE Urine Cannabinoids Screen NEGATIVE NEGATIVE White Blood Count 13.2 H 4.3-11.0 10^3/uL Red Blood Count 5.11 3.80-5.11 10^6/uL Hemoglobin 15.2 11.5-16.0 g/dL Hematocrit 44 35-52 % Mean Corpuscular Volume 87 80-99 fL Mean Corpuscular Hemoglobin 30 25-34 pg Mean Corpuscular Hemoglobin Concent 34 32-36 g/dL Red Cell Distribution Width 12.3 10.0-14.5 % Platelet Count 388 130-400 10^3/uL Mean Platelet Volume 9.8 9.0-12.2 fL Immature Granulocyte % (Auto) 0 % Neutrophils (%) (Auto) 66 42-75 % Lymphocytes (%) (Auto) 28 12-44 % Monocytes (%) (Auto) 5 0-12 % Eosinophils (%) (Auto) 1 0-10 % Basophils (%) (Auto) 0 0-10 % Neutrophils # (Auto) 8.7 H 1.8-7.8 10^3/uL Lymphocytes # (Auto) 3.7 1.0-4.0 10^3/uL Monocytes # (Auto) 0.6 0.0-1.0 10^3/uL Eosinophils # (Auto) 0.1 0.0-0.3 10^3/uL Basophils # (Auto) 0.1 0.0-0.1 10^3/uL Immature Granulocyte # (Auto) 0.1 0.0-0.1 10^3/uL Sodium Level 140 135-145 MMOL/L Potassium Level 2.8 L 3.6-5.0 MMOL/L Chloride Level 95 L 98-107 MMOL/L Carbon Dioxide Level 30 21-32 MMOL/L Anion Gap 15 H 5-14 MMOL/L Blood Urea Nitrogen 11 7-18 MG/DL Creatinine 0.92 0.60-1.30 MG/DL Estimat Glomerular Filtration Rate 68 BUN/Creatinine Ratio 12 Glucose Level 162 H 70-105 MG/DL Lactic Acid Level 3.07 *H 0.50-2.00 MMOL/L Calcium Level 9.9 8.5-10.1 MG/DL Corrected Calcium 9.8 8.5-10.1 MG/DL Magnesium Level 1.9 1.6-2.4 MG/DL Total Bilirubin 0.6 0.1-1.0 MG/DL Aspartate Amino Transf (AST/SGOT) 21 5-34 U/L Alanine Aminotransferase (ALT/SGPT) 18 0-55 U/L Alkaline Phosphatase 103 40-136 U/L Troponin I < 0.30 <0.30 NG/ML Total Protein 7.5 6.4-8.2 GM/DL Albumin 4.1 3.2-4.5 GM/DL Serum Alcohol < 10 <10 MG/DL My Orders Orders - CHRISTIANE VELASQUEZ MD Alcohol (03/11/23 17:11) Cbc With Automated Diff (03/11/23 17:11) Comprehensive Metabolic Panel (03/11/23 17:11) Drug Screen Stat (Urine) (03/11/23 17:11) Lactic Acid Analyzer (03/11/23 17:11) Magnesium (03/11/23 17:11) Ua Culture If Indicated (03/11/23 17:11) Troponin I Fs (03/11/23 17:11) Urine Culture (03/11/23 16:49) Ed Iv/Invasive Line Start (03/11/23 17:29) Ns Iv 1000 Ml (Sodium Chloride 0.9%) (03/11/23 17:30) Famotidine Injection (Pepcid Injection) (03/11/23 17:29) Pantoprazole Injection (Protonix Injecti (03/11/23 17:30) Fentanyl Inj (Sublimaze Injection) (03/11/23 17:30) Ct Abdomen/Pelvis W (03/11/23 18:02) Piperacillin Sodium/Tazobactam (Zosyn Vi (03/11/23 18:15) Blood Culture (03/11/23 18:02) Potassium Cl 10meq/50ml Ivpb (Kcl 10 Meq (03/11/23 18:15) Iohexol Injection (Omnipaque 350 Mg/Ml 1 (03/11/23 18:15) Received Contrast (Hold Metformin- Contr (03/11/23 18:15) Ns (Ivpb) (Sodium Chloride 0.9% Ivpb Bag (03/11/23 18:15) Ed Iv/Invasive Line Start (03/11/23 19:08) Ns Iv 1000 Ml (Sodium Chloride 0.9%) (03/11/23 19:08) Ns Iv 1000 Ml (Sodium Chloride 0.9%) (03/11/23 19:09) Clonidine Tablet (Catapres Tablet) (03/11/23 19:45) Protonix Drip (03/11/23 20:15) Antacid Suspension (Mylanta Suspension (03/11/23 20:15) Lidocaine 2% Viscous 15 Ml (Xylocaine Vi (03/11/23 20:30) Medications Given in ED Current Medications Medications Dose Ordered Sig/Danie Route Start Time Stop Time Status Last Admin Dose Admin Fentanyl Citrate 50 mcg ONCE ONCE IVP 03/11/23 17:30 03/11/23 17:41 DC 03/11/23 17:47 50 MCG Iohexol 100 ml ONCE ONCE IV 03/11/23 18:15 03/11/23 18:16 DC 03/11/23 18:27 80 ML Pantoprazole 40 mg ONCE ONCE IV 03/11/23 17:30 03/11/23 17:41 DC 03/11/23 17:47 40 MG Piperacillin Sod/ Tazobactam Sod 4.5 gm/Sodium Chloride 100 ml @ 200 mls/hr ONCE ONCE IV 03/11/23 18:15 03/11/23 18:44 DC 03/11/23 18:32 200 MLS/HR Vital Signs/I&O 03/11/23 16:49 Temp 36.6 Pulse 88 Resp 18 B/P (MAP) 190/72 (111) Pulse Ox 100 O2 Delivery Room Air Progress Progress Note : Progress Note 1. ACUTE ON CHRONIC ABDOMINAL PAIN: GASTRITIS & DEHYDRATION/ INTRACTABLE PAIN: - CT ABD: no acute findings - CBC: WBC is 13.2 - CMP: Lactic acid is elevated to 3.07 - Protonix 40mg iv bolus and Protonix drip/ Pepcid 20mgiv / Fentanyl 50mcg iv STAT/ Viscous lidocaine and Maalox STAT - NS IVF bolus x 2 given, and potassium 40mEq iv for repletion -Patient has a GI appointment on Tuesday at [facility] in [place]. -Will admit patient for intractable pain and GI work-up and potassium repletion. Discussed with hospitalist at [facility] in [place], and accepted for admission 2. HYPOKALEMIA: - s. K is 2.8 - iv Potassium 40mEq STAT with NS Diagnostic Imaging Diagonstic Imaging: CT Plain Films/CT/US/NM/MRI: abdomen Comments [facility] [place] NAME: GILMAR L[facility] REC#: [id number] PT STATUS: REG ER : 1955 PHYSICIAN: CHRISTIANE VELASQUEZ MD ADMIT DATE: 03/11/23/ER FS Draft Date of Exam:03/11/23 CT ABDOMEN/PELVIS W PROCEDURE: CT abdomen and pelvis with contrast. TECHNIQUE: Multiple contiguous axial images were obtained through the abdomen and pelvis after administration of intravenous contrast. Auto Exposure Controls were utilized during the CT exam to meet ALARA standards for radiation dose reduction. All CT scans use one or more of the following dose optimizing techniques: automated exposure control, MA and/or KvP adjustment based on patient size and exam type or iterative reconstruction. INDICATION: Right upper quadrant pain. FINDINGS: Lung bases are clear. Liver appears normal. Gallbladder is surgically absent. Pancreas is normal. Spleen is unremarkable. Adrenals are normal. Kidneys appear normal. Small bowel is not dilated. Colon is unremarkable. There is no intraperitoneal free air or free fluid. There is atherosclerosis but no aneurysm or dissection. Uterus is present and appears grossly normal. Adnexa are unremarkable. IMPRESSION: Atherosclerosis. No acute abnormality is seen. Dictated on workstation # [id number] Dict: 03/11/231835 Trans: 03/11/231842 [id number] Interpreted by: DIANA FREEMAN MD Electronically signed by: Departure Communication (Admissions) Time/Spoke to Admitting Phy: 20:10 Raiza with hospitalist, Dr. Jarvis, at [facility] and accepted for admission Impression Primary Impression: Intractable abdominal pain Additional Impressions: Dehydration Hypokalemia due to excessive gastrointestinal loss of potassium Gastritis Disposition: XFER SHT-TRM HOSP Condition: Improved Admissions Decision to Admit Reason: Admit from ER (General) Decision to Admit/Date: Mar 11, 2023 Time/Decision to Admit Time: 19:00 Transfer Transfer Reason: Exceeds level of care Time Spoke to Accepting Phy: 20:10 Transfer Progress Notes will be transferred to [facility] Transfer Facility: [facility] Method of Transfer: EMS Departure-Patient Inst. Referrals: KATYA SAN MD (PCP/Family) Primary Care Physician CHRISTIANE VELASQUEZ MD Mar 11, 2023 17:10
[2023-03-11 17:15] LABS: BASOPHILS # (AUTO) 0.1 10^3/uL (0.0-0.1); BASOPHILS % (AUTO) 0 % (0-10); EOSINOPHILS # (AUTO) 0.1 10^3/uL (0.0-0.3); EOSINOPHILS % (AUTO) 1 % (0-10); HEMATOCRIT 44 % (35-52); HEMOGLOBIN 15.2 g/dL (11.5-16.0); LYMPHOCYTES # (AUTO) 3.7 10^3/uL (1.0-4.0); LYMPHOCYTES % (AUTO) 28 % (12-44); MEAN CORPUSCULAR HEMOGLOBIN 30 pg (25-34); MEAN CORPUSCULAR HGB CONC 34 g/dL (32-36); MEAN CORPUSCULAR VOLUME 87 fL (80-99); MEAN PLATELET VOLUME 9.8 fL (9.0-12.2); MONOCYTES # (AUTO) 0.6 10^3/uL (0.0-1.0); MONOCYTES % (AUTO) 5 % (0-12); NEUTROPHILS # (AUTO) 8.7 10^3/uL (1.8-7.8); NEUTROPHILS % (AUTO) 66 % (42-75); PLATELET COUNT 388 10^3/uL (130-400); WHITE BLOOD COUNT 13.2 10^3/uL (4.3-11.0)
[2023-03-11 17:16] LABS: BILIRUBIN,URINE NEGATIVE (NEGATIVE); CLARITY,URINE CLEAR; COLOR,URINE YELLOW; GLUCOSE, URINE (UA) NEGATIVE (NEGATIVE); KETONES,URINE NEGATIVE (NEGATIVE); LEUKOCYTE ESTERASE ,URINE NEGATIVE (NEGATIVE); NITRITE,URINE NEGATIVE (NEGATIVE); PH,URINE 5.5 (5-9); PROTEIN,URINE NEGATIVE (NEGATIVE)
[2023-03-11 17:18] LABS: BACTERIA,URINE FEW /HPF; WBC,URINE 25-50 /HPF
[2023-03-11 17:27] LABS: ALANINE AMINOTRANSFERASE 18 U/L (0-55); ALBUMIN 4.1 GM/DL (3.2-4.5); ALKALINE PHOSPHATASE 103 U/L (40-136); BILIRUBIN,TOTAL 0.6 MG/DL (0.1-1.0); BUN/CREATININE RATIO 12; CALCIUM 9.9 MG/DL (8.5-10.1); CARBON DIOXIDE 30 MMOL/L (21-32); CHLORIDE 95 MMOL/L (98-107); CREATININE SERUM 0.92 MG/DL (0.60-1.30); GFR ESTIMATED 68; GLUCOSE 162 MG/DL (70-105); MAGNESIUM 1.9 MG/DL (1.6-2.4); POTASSIUM 2.8 MMOL/L (3.6-5.0); SODIUM 140 MMOL/L (135-145); TOTAL PROTEIN 7.5 GM/DL (6.4-8.2)
[2023-03-11] MEDS ORDERED: FAMOTIDINE 20MG/2ML IV (PEPCID) IV STA (17:29)
[2023-03-11] MEDS ORDERED: fentaNYL INJ 100 MCG/2 ML AMP IVP ONE (17:30)
[2023-03-11] MEDS ORDERED: NS IV 1000 ML 1,000 ML IV SCH (17:30)
[2023-03-11] MEDS ORDERED: PANTOPRAZOLE 40 MG (PROTONIX) VIAL IV ONE (17:30)
[2023-03-11 17:31] LABS: AMPHETAMINE SCREEN, URINE NEGATIVE (NEGATIVE); BARBITURATE SCREEN URINE NEGATIVE (NEGATIVE); BENZODIAZEPINES SCREEN URINE NEGATIVE (NEGATIVE); CANNABINOID SCREEN, URINE NEGATIVE (NEGATIVE); COCAINE SCREEN URINE NEGATIVE (NEGATIVE); METHADONE STAT NEGATIVE (NEGATIVE); OPIATE SCREEN URINE POSITIVE (NEGATIVE); OXYCODONE STAT NEGATIVE (NEGATIVE); PROPOXYPHENE STAT NEGATIVE (NEGATIVE); TRICYCLIC ANTIDEPRESSANTS SCRE NEGATIVE (NEGATIVE)
[2023-03-11] MEDS ORDERED: PIPERACILLIN SODIUM/TAZOBACTAM 4.5 GM in NS (IVPB) 100 ML IV ONE (18:15)
[2023-03-11] MEDS ORDERED: NS 100 ML (IVPB) BAG IV ONE (18:15)
[2023-03-11] MEDS ORDERED: HOLD METFORMIN - RECEIVED CONTRAST 20 ML VIAL IV SCH (18:15)
[2023-03-11] MEDS ORDERED: IOHEXOL 350 MG/ML 100 ML (OMNIPAQUE 350) VIAL IV ONE (18:15)
--- NOTE | 2023-03-11 18:43 | Diagnostic Imaging Report ---
PROCEDURE: CT abdomen and pelvis with contrast. TECHNIQUE: Multiple contiguous axial images were obtained through the abdomen and pelvis after administration of intravenous contrast. Auto Exposure Controls were utilized during the CT exam to meet ALARA standards for radiation dose reduction. All CT scans use one or more of the following dose optimizing techniques: automated exposure control, MA and/or KvP adjustment based on patient size and exam type or iterative reconstruction. INDICATION: Right upper quadrant pain. FINDINGS: Lung bases are clear. Liver appears normal. Gallbladder is surgically absent. Pancreas is normal. Spleen is unremarkable. Adrenals are normal. Kidneys appear normal. Small bowel is not dilated. Colon is unremarkable. There is no intraperitoneal free air or free fluid. There is atherosclerosis but no aneurysm or dissection. Uterus is present and appears grossly normal. Adnexa are unremarkable. IMPRESSION: Atherosclerosis. No acute abnormality is seen. Dictated by: Dictated on workstation # [id number]
[2023-03-11] MEDS ORDERED: NS IV 1000 ML 1,000 ML IV STA (19:08)
[2023-03-11] MEDS ORDERED: NS IV 1000 ML 1,000 ML ONE (19:09)
[2023-03-11] MEDS: POTASSIUM CL 10MEQ/50ML IVPB 50 ML IV SCH ×4 (19:15→22:47)
[2023-03-11] MEDS ORDERED: cloNIDine 0.1 MG (CATAPRES) TAB PO ONE (19:45)
[2023-03-11] MEDS ORDERED: ANTACID SUSP 30 ML UDC (MYLANTA) PO ONE (20:15)
[2023-03-11] MEDS ORDERED: PANTOPRAZOLE INJECTION 200 MG in NS (IVPB) 100 ML IV STA (20:15)
[2023-03-11] MEDS ORDERED: LIDOCAINE 2% VISCOUS 15 ML UDC PO ONE (20:30)
[2023-03-11] MEDS ORDERED: LACTATED RINGERS 1,000 ML IV ONE (21:15)
[2023-03-11 22:53] VITALS: BP 201/91
== END 2023-03-11 22:53 | disposition short-term general hospital (02) ==
LOC: EDUNIT# 16:45 → ER FS 16:47
DX: E86.0 Dehydration (principal); E87.6 Hypokalemia; K29.70 Gastritis, unspecified, without bleeding; Z90.49 Acquired absence of other specified parts of digestive tract; Z28.311 Partially vaccinated for COVID-19
CPT/HCPCS: 36415; 74177; 80053; 80306; 81000; 83605; 83735; 84484; 85025; 87040; 87088; 99285; G0480; 80320; Q9967